=== PATIENT | female | born 2000 | race Two or more races ===

== ENCOUNTER 2024-03-03 14:45 | Outpatient (CLI) | payer OTHER | END 2024-03-03 14:49 | disposition home or self-care (01) | LOC: PRENATAL 14:45 | PROVIDERS: ATTEND Obstetrics & Gynecology Maternal & Fetal Medicine | DX: O36.80X0 Pregnancy with inconclusive fetal viability, not applicable or unspecified (principal); Z36.82 Encounter for antenatal screening for nuchal translucency ==

== ENCOUNTER → 2024-04-20 08:18 | Outpatient (CLI) | payer OTHER | END | disposition home or self-care (01) | LOC: PRENATAL 08:18 | PROVIDERS: ATTEND Obstetrics & Gynecology Maternal & Fetal Medicine | DX: O35.9XX0 Maternal care for (suspected) fetal abnormality and damage, unspecified, not applicable or unspecified (principal); O35.3XX0 Maternal care for (suspected) damage to fetus from viral disease in mother, not applicable or unspecified; O44.02 Complete placenta previa NOS or without hemorrhage, second trimester; Z3A.20 20 weeks gestation of pregnancy ==

== ENCOUNTER 2024-07-13 09:00 | Outpatient (CLI) | payer OTHER | END 2024-07-13 09:01 | disposition home or self-care (01) | LOC: PRENATAL 09:00 | PROVIDERS: ATTEND Obstetrics & Gynecology Maternal & Fetal Medicine | DX: O26.849 Uterine size-date discrepancy, unspecified trimester (principal); O36.8199 Decreased fetal movements, unspecified trimester, other fetus; O99.019 Anemia complicating pregnancy, unspecified trimester; Z3A.31 31 weeks gestation of pregnancy ==

== ENCOUNTER 2024-08-22 09:31 | Inpatient (IN) | payer OTHER ==
[~2024-08-22] VITALS: Ht 149.9 cm; Wt 2.7 kg
[2024-08-22 09:47] LABS: HEMATOCRIT 33.4 % (36.0-45.00); MEAN CELL VOLUME 87.6 fL (80.00-100.00); MEAN CORPUSCULAR HEMOGLOBIN 28.8 pg (27.00-32.0); MEAN CORPUSCULAR HGB CONC 32.9 g/dl (32.0-36.0); PLATELET COUNT 222 K/uL (150-450); RED BLOOD COUNT 3.81 M/uL (4.00-6.00); RED CELL DISTRIBUTION WIDTH 15.4 % (11.5-14.5)
[2024-08-22 09:53] LABS: PH,URINE 6.5 (5.0-8.0); URINE APPEARANCE Cloudy; URINE BILIRRUBIN Negative (NEGATIVE); URINE BLOOD Negative; URINE COLOR Yellow; URINE GLUCOSE Negative (NEGATIVE); URINE KETONE Negative (NEGATIVE); URINE LEUKOCYTE Trace; URINE NITRATE Negative; URINE PROTEIN Negative (NEGATIVE); URINE UROBILINOGEN 0.2 E.U./dl
[2024-08-22 09:56] LABS: URINE BACTERIA 3109.9 uL (0.0-1933); URINE EPITHELIAL CELLS 67.8 uL (0.0-38.8); URINE WBC 52.7 uL (0.0-23.2)
[2024-08-22 10:04] LABS: INR < 0.93; PARTIAL THROMBOPLASTIN TIME 27.6 SECONDS (22.0-34.0); PROTHROMBIN TIME 9.9 SECONDS (9.0-11.5)
[2024-08-22 10:10] LABS: URINE CAST 0.58 uL (0.0-1.40); URINE RBC 1.1 uL (0.0-20.8)
[2024-08-22 11:25] LABS: ALBUMIN 2.9 gm/dL (3.4-5.0); BILIRUBIN TOTAL 0.92 mg/dL (0.3-1.2); CALCIUM 8.8 mg/dL (8.5-10.1); CREATININE SERUM 0.64 mg/dL (0.55-1.02); GFR 112.17; GLOBULINA 3.4 G/DL (2.4-3.5); POTASSIUM 4.61 mEq/L (3.5-5.1); TOTAL PROTEIN 6.3 gm/dL (6.4-8.2)
[2024-08-30] VITALS (7 sets, daily range): BP systolic 112–128; BP diastolic 60–77
[2024-08-30] MEDS ORDERED: IRON236 MG PO (01:54)
[2024-08-30] MEDS ORDERED: PRENATAL TABLE1 EAC4 (01:54)
[2024-08-30] MEDS ORDERED: RINGERS SOLUTION,LACTATED 1,000 ML IV SCH ×2 (02:00→19:00)
[2024-08-30] MEDS ORDERED: AMPICILLIN SODIUM 2,000 MG VIAL IV ONE (02:00)
[2024-08-30 02:22] LABS: HEMATOCRIT 33.2 % (36.0-45.00); HEMOGLOBIN 11.1 g/dL (12.0-15.00); MEAN CELL VOLUME 86.5 fL (80.00-100.00); MEAN CORPUSCULAR HGB CONC 33.6 g/dl (32.0-36.0); PLATELET COUNT 195 K/uL (150-450); RED BLOOD COUNT 3.83 M/uL (4.00-6.00); RED CELL DISTRIBUTION WIDTH 17.7 % (11.5-14.5)
[2024-08-30 02:24] LABS: URINE APPEARANCE Clear; URINE BILIRRUBIN Negative (NEGATIVE); URINE BLOOD Negative; URINE COLOR Yellow; URINE GLUCOSE Negative (NEGATIVE); URINE KETONE Negative (NEGATIVE); URINE LEUKOCYTE Negative; URINE NITRATE Negative; URINE PROTEIN Negative (NEGATIVE); URINE UROBILINOGEN 0.2 E.U./dl
[2024-08-30 02:27] LABS: URINE BACTERIA 269.1 uL (0.0-1933); URINE EPITHELIAL CELLS 10.6 uL (0.0-38.8); URINE WBC 4.9 uL (0.0-23.2)
[2024-08-30 02:30] LABS: URINE CAST 0.14 uL (0.0-1.40); URINE RBC 1.1 uL (0.0-20.8)
[2024-08-30 02:46] LABS: INR < 0.93; PROTHROMBIN TIME 9.9 SECONDS (9.0-11.5)
[2024-08-30 02:51] LABS: ALBUMIN 3.1 gm/dL (3.4-5.0); BILIRUBIN TOTAL 0.93 mg/dL (0.3-1.2); CALCIUM 8.9 mg/dL (8.5-10.1); CREATININE SERUM 0.81 mg/dL (0.55-1.02); GFR 85.47; GLOBULINA 3.3 G/DL (2.4-3.5); POTASSIUM 4.59 mEq/L (3.5-5.1); TOTAL PROTEIN 6.4 gm/dL (6.4-8.2)
[2024-08-30] MEDS ORDERED: OXYTOCIN 20 UNITS/500ML RL PIGGYBAG IV ONE (03:03)
[2024-08-30] MEDS ORDERED: OXYTOCIN 500 ML IV SCH (03:15)
[2024-08-30] MEDS ORDERED: AMPICILLIN SODIUM 1,000 MG VIAL IV SCH (05:00)
[2024-08-30] MEDS ORDERED: ONDANSETRON HCL 2 MG/ML VIAL IV ONE (07:15)
[2024-08-30] MEDS ORDERED: ONDANSETRON 4 MG TAB.RAPDIS PO NR (08:30)
[2024-08-30] MEDS ORDERED: MORPHINE SULFATE 4 MG/ML VIAL IV ONE (14:15)
[2024-08-30] MEDS ORDERED: OXYTOCIN 10 UNITS/ML VIAL ONE ×2 (17:10→19:53)
[2024-08-30] MEDS ORDERED: ERYTHROMYCIN BASE OPHT 1GM EACH TUBE OP ONE (17:10)
[2024-08-30] MEDS ORDERED: OXYTOCIN 1,000 ML IV SCH (19:00)
[2024-08-30] MEDS ORDERED: KETOROLAC TROMETHAMINE 30 MG VIAL IV SCH (19:00)
[2024-08-30] MEDS ORDERED: CHLORHEXIDINE GLUCONATE 120 ML BOTTLE TP SCH (19:00)
[2024-08-30] MEDS ORDERED: MORPHINE SULFATE 4 MG/ML CARTRIDGE IV PRN (19:15)
[2024-08-30] MEDS ORDERED: KETOROLAC TROMETHAMINE 30 MG VIAL IV ONE (20:05)
[2024-08-30] MEDS ORDERED: CEFAZOLIN SODIUM 1,000 MG VIAL IV SCH (21:00)
[2024-08-30] MEDS ORDERED: FAMOTIDINE/PF 20 MG/2 ML VIAL IV SCH (21:00)
[2024-08-30] MEDS ORDERED: ONDANSETRON HCL 2 MG/ML VIAL IV SCH (21:00)
[2024-08-30 23:45] LABS: HEMATOCRIT 34.6 % (36.0-45.00); HEMOGLOBIN 11.5 g/dL (12.0-15.00); MEAN CELL VOLUME 86.6 fL (80.00-100.00); MEAN CORPUSCULAR HEMOGLOBIN 28.8 pg (27.00-32.0); MEAN CORPUSCULAR HGB CONC 33.2 g/dl (32.0-36.0); PLATELET COUNT 176 K/uL (150-450); RED BLOOD COUNT 3.99 M/uL (4.00-6.00); RED CELL DISTRIBUTION WIDTH 17.8 % (11.5-14.5)
[2024-08-31 08:00] VITALS: BP 105/68
[2024-08-31] MEDS ORDERED: DOCUSATE SODIUM 100MG CAP PO SCH (09:00)
[2024-08-31] MEDS ORDERED: SIMETHICONE 125 MG CAPSULE PO SCH (09:00)
[2024-08-31] MEDS ORDERED: OxyCODONE HCL/APAP UD (PERCOCET) PO SCH (12:00)
[2024-08-31] MEDS ORDERED: IBUprofen 800 MG TABLET PO PRN (13:00)
[2024-08-31 16:17] VITALS: BP 103/63
[2024-09-01 00:17] VITALS: BP 107/69
[2024-09-01 08:42] VITALS: BP 117/75
[2024-09-01 16:00] VITALS: BP 117/72
[2024-09-02 00:56] VITALS: BP 120/64; O2SAT 100
[2024-09-02 07:34] VITALS: BP 122/67
[2024-09-02 12:39] VITALS: BP 115/75
== END 2024-09-02 15:22 | disposition home or self-care (01) | DRG 788 ==
LOC: LDR 08-30 01:49 → OB/GYN 08-30 01:49 → O/R 08-30 18:12 → OB/GYN 08-30 19:03
PROVIDERS: Obstetrics & Gynecology; ADMIT General Practice; ATTEND General Practice
PROC: 4A1HXCZ Monitoring of Products of Conception, Cardiac Rate, External Approach (ICD-10-PCS; 2024-08-30)
PROC: 10D00Z1 Extraction of Products of Conception, Low, Open Approach (ICD-10-PCS; principal; 2024-08-30 17:30)
DX: O82 Encounter for cesarean delivery without indication (principal); O99.824 Streptococcus B carrier state complicating childbirth; Z3A.39 39 weeks gestation of pregnancy; Z37.0 Single live birth; Z20.822 Contact with and (suspected) exposure to COVID-19